=== PATIENT | male | born 1945 | race Caucasian/White ===

== ENCOUNTER 2017-08-02 11:47 | Emergency (ER) | payer OTHER, MEDICARE, BC ==
[~2017-08-02] VITALS: Ht 180.3 cm; Wt 99.8 kg
[~2017-08-02 11:47] MED LIST: ALBU90OI INH; ALBU90OI61 INH; Aspirin EC81 MG; BENZ100A PO; ESOM20; EZET10-40; Prednisone20 MG PO
[2017-08-02] MEDS ORDERED: Robaxin500 MG PO (12:22)
== END 2017-08-02 12:30 | disposition home or self-care (01) ==
LOC: ER 11:47
DX: M25.512 Pain in left shoulder (principal); M25.511 Pain in right shoulder; I10 Essential (primary) hypertension; E78.5 Hyperlipidemia, unspecified; Z88.0 Allergy status to penicillin; Z88.5 Allergy status to narcotic agent; Z79.899 Other long term (current) drug therapy
CPT/HCPCS: 99282

== ENCOUNTER 2024-08-26 06:14 | Day surgery (SDC) | payer MEDICARE ==
[~2024-08-26] VITALS: Ht 180.3 cm; Wt 118.0 kg
[~2024-08-26 06:14] MED LIST changes: +Robaxin500 MG PO
[2024-08-26] MEDS ORDERED: CeFAZolin Sodium 2,000 MG VIAL ONE (06:29)
[2024-08-26] MEDS ORDERED: Lactated Ringer's 1,000 ML IV ONE ×2 (06:35→07:55)
[2024-08-26] MEDS ORDERED: propofoL 20 ML IV ONE (06:37)
[2024-08-26] MEDS ORDERED: Dexamethasone Sod Phos 10 MG/ML 1ML VIAL ONE (06:37)
[2024-08-26] MEDS ORDERED: FentaNYL Citrate 50 MCG/ML 2 ML Injection ONE (06:37)
[2024-08-26] MEDS ORDERED: Ondansetron HCl 2 MG / ML 2ML Vial ONE (06:37)
[2024-08-26] MEDS ORDERED: OMEP20ER PO (06:38)
[2024-08-26] MEDS ORDERED: Crestor40 MG PO (06:38)
[2024-08-26] MEDS ORDERED: Bupivacaine 0.5% W/EPI 1:200000 SDV 30 ML Vial ONE (07:03)
[2024-08-26] MEDS ORDERED: Sugammadex Sodium 200 MG/2ML SDV (100 MG/ML) ONE (08:11)
--- NOTE | 2024-08-26 08:44 | NUR ---
08/26/24 0844 Lili Kendall LUNGS CLEAR, HEART SOUNDS REGULAR. PT DRINKING WATER AT THIS TIME
[2024-08-26 09:15] VITALS: BP 124/72
== END 2024-08-26 09:31 | disposition home or self-care (01) ==
LOC: ORSCSDS 06:14
PROVIDERS: Podiatrist Foot & Ankle Surgery
PROC: 0SGM04Z Fusion of Right Metatarsal-Phalangeal Joint with Internal Fixation Device, Open Approach (ICD-10-PCS; principal; 2024-08-26 07:30)
DX: M20.21 Hallux rigidus, right foot (principal); I25.10 Atherosclerotic heart disease of native coronary artery without angina pectoris; J45.909 Unspecified asthma, uncomplicated; I25.2 Old myocardial infarction; E78.5 Hyperlipidemia, unspecified; Z79.899 Other long term (current) drug therapy; Z79.82 Long term (current) use of aspirin; E66.9 Obesity, unspecified; Z68.35 Body mass index [BMI] 35.0-35.9, adult
CPT/HCPCS: C1713; J0690; J1100; J2405; J2704; J3010; J7120